=== PATIENT | female | born 1975 | race Two or more races ===

== ENCOUNTER 2022-08-17 10:09 | Emergency (ER) | payer BC ==
[~2022-08-17] VITALS: Ht 170.2 cm; Wt 118.1 kg
[2022-08-17 15:34] VITALS: BP 135/86
== END 2022-08-17 15:37 | disposition home or self-care (01) ==
LOC: M ED 10:09
DX: R22.2 Localized swelling, mass and lump, trunk (principal); E11.9 Type 2 diabetes mellitus without complications; I10 Essential (primary) hypertension

== ENCOUNTER 2022-11-28 16:20 | Emergency (ER) | payer BC, OTHER ==
[~2022-11-28] VITALS: Ht 170.2 cm; Wt 119.9 kg
[2022-11-28] MEDS ORDERED: AMLO2.5T3 (16:31)
[2022-11-28] MEDS ORDERED: LIDOCAINE 1% SDV 30ML VIAL SC SCH (17:30)
[2022-11-28] MEDS ORDERED: LIDOCAINE 1% MDV 20ML VIAL As Ordered ONE (17:39)
[2022-11-28] MEDS ORDERED: LIDOCAINE 1% MDV 20ML VIAL SC ONE (17:40)
[2022-11-28] MEDS ORDERED: BACT800T5 PO (18:04)
[2022-11-28 18:11] VITALS: BP 169/86
[2022-11-28] MEDS ORDERED: BACTRIM 160MG/800MG DS TAB PO ONE (18:15)
== END 2022-11-28 18:23 | disposition home or self-care (01) ==
LOC: M ED 16:20
DX: L02.211 Cutaneous abscess of abdominal wall (principal); I10 Essential (primary) hypertension

== ENCOUNTER 2022-11-30 13:50 | Emergency (ER) | payer BC, OTHER ==
[~2022-11-30] VITALS: Ht 170.2 cm; Wt 119.7 kg
[~2022-11-30 13:50] MED LIST: AMLO2.5T3; BACT800T5 PO
[2022-11-30 15:34] VITALS: BP 157/85
== END 2022-11-30 15:35 | disposition home or self-care (01) ==
LOC: M ED 13:50
DX: Z48.00 Encounter for change or removal of nonsurgical wound dressing (principal); L02.213 Cutaneous abscess of chest wall; I10 Essential (primary) hypertension

== ENCOUNTER → 2023-11-15 | Outpatient (REF) | payer BC, OTHER | LOC: M LAB REF 17:32 | PROVIDERS: ATTEND Surgery | DX: L72.3 Sebaceous cyst (principal) ==

== ENCOUNTER → 2024-12-28 | Outpatient (REF) | payer BC, OTHER ==
[2024-12-30 14:37] LABS: HPV APTIMA Not Detected (Not Detected)
== END ==
LOC: M SFHCWAGY 15:02
PROVIDERS: ATTEND Obstetrics & Gynecology
DX: Z12.4 Encounter for screening for malignant neoplasm of cervix (principal)
CPT/HCPCS: 87624; G0123